=== PATIENT | female | born 1995 | race Two or more races ===

== ENCOUNTER 2024-10-08 17:23 | Outpatient (CLI) | payer MEDICAID, SELFPAY ==
[2024-10-08] VITALS (8 sets, daily range): BP systolic 118–141; BP diastolic 80–92; PULSE 60–65; RESP 16–98; TEMP 36.8; O2SAT 98; BMI 28.5
[2024-10-08 18:14] LABS: Collection Type, Urine Clean Catch; RBC,Urine 0 /hpf (0-3)
[2024-10-08 18:20] LABS: Basophils % (Auto) 0 % (0-2.5); Eosinophils # (Auto) 0.1 Thou/mm3 (0.0-0.5); Eosinophils % (Auto) 1 % (0-10); Hemoglobin 13.3 g/dL (12.0-16.0); Immature Granulocytes % (Auto) 1 % (0-0); Immature Granulocytes Auto 0.05 Thou/mm3 (0.00-0.00); Lymphocytes # (Auto) 1.9 Thou/mm3 (1.0-4.8); Lymphocytes % (Auto) 20 % (10-50); Mean Corpuscular Hemoglobin 31.7 pg (25.0-35.0); Mean Corpuscular Volume 91 fL (80-100); Monocytes # (Auto) 0.7 Thou/mm3 (0.0-0.8); Monocytes % (Auto) 8 % (0-12); Neutrophils # (Auto) 6.6 Thou/mm3 (1.8-7.7); Neutrophils % (Auto) 71 % (37-80); Nucleated Red Blood Cell % 0 /100 WBC (0); Platelet Count 124 Thou/mm3 (140-440); RDW Standard Deviation 41.5 fL (36.4-46.3); White Blood Count 9.3 Thou/mm3 (3.6-11.0)
[2024-10-08 18:38] LABS: Bacteria,Urine 1+; Bilirubin,Urine Negative (Negative); Blood,Urine Negative (Negative); Clarity,Urine Clear (Clear/Hazy); Color,Urine Colorless (Lt Yel-Yel); Glucose, Urine Negative (Negative); Ketones,Urine Negative (Negative); Leukocyte Esterase,Urine Positive (Negative); Nitrite,Urine Negative (Negative); Protein,Urine Negative (Neg - Trace); Specific Gravity,Urine 1.003 (1.001-1.035); Squamous Epithelial Cell,Urine 1 /hpf (0-5); Urobilinogen,Urine Negative mg/dL (0.0-1.0); WBC,Urine 5 /hpf (0-5)
[2024-10-08 18:43] LABS: Alanine Aminotransferase 11 U/L (10-49); Albumin, Serum 3.6 gm/dL (3.5-5.0); Albumin/Globulin Ratio 1.3 (1.2-2.2); Alkaline Phosphatase 99 U/L (46-116); Anion Gap 7 (7-16); Aspartate Amino Transferase 19 U/L (0-34); BUN/Creatinine Ratio 12 Ratio (12-20); Bilirubin,Total 0.3 mg/dL (0.3-1.2); Blood Urea Nitrogen 7 mg/dL (9-23); Calcium 8.8 mg/dL (8.3-10.6); Calcium (Corrected) 9.1 mg/dL (8.5-10.1); Chloride 103 mMol/L (98-107); Creatinine (Component) 0.6 mg/dL (0.6-1.3); Estimated Creatinine Clearance 145.2 mL/min (>60); Globulin 2.8 gm/dL (2.3-3.5); Glucose 86 mg/dL (74-106); Osmolality,Calculated 267 (275-295); Potassium 3.6 mMol/L (3.4-5.1); Sodium 135 mMol/L (136-145); Total Protein 6.4 gm/dL (5.7-8.2); Uric Acid 4.2 mg/dL (3.1-7.8); eGFR > 60 See Note
[2024-10-08 18:44] LABS: Creatinine,Random Urine 15 mg/dL (30-125); Protein Total, Random Urine < 6 mg/dL (1-14)
[2024-10-08 19:32] LABS: Fibrinogen 428 mg/dL (175-375); INR 0.9 (0.9-1.3); Partial Thromboplastin Time 24.2 Seconds (22.0-36.0); Prothrombin Time 9.8 Seconds (9.0-12.2)
[2024-10-08] MEDS: BETAMET ACET/BETAMET NA PH (Celestone) 6 MG/ML VIAL 12 MG IM (20:01)
== END 2024-10-08 20:37 | disposition home or self-care (01) ==
LOC: S4S1 17:27 → S4SX 18:31
PROVIDERS: Referring Provider Specialist; Visit Provider Specialist
DX: O26.893 Other specified pregnancy related conditions, third trimester (principal); Z3A.34 34 weeks gestation of pregnancy; R03.0 Elevated blood-pressure reading, without diagnosis of hypertension
CPT/HCPCS: 36415; 59025; 80053; 81001; 82570; 84156; 84550; 85025; 85384; 85610; 85730; 96372; J0702

== ENCOUNTER 2024-10-09 19:58 | Outpatient (CLI) | payer MEDICAID, SELFPAY ==
[2024-10-09] VITALS (10 sets, daily range): BP systolic 124; BP diastolic 79; PULSE 62–69; RESP 18–100; TEMP 36.8; O2SAT 91–100; BMI 28.0
[2024-10-09] MEDS: BETAMET ACET/BETAMET NA PH (Celestone) 6 MG/ML VIAL 12 MG IM (20:38)
[2024-10-09 21:10] LABS: Creatinine,Urine 53 mg/dL (30-125); Protein Total, Urine 10 mg/dL (1-14)
[2024-10-09 21:23] LABS: Creatinine (Component) 0.6 mg/dL (0.6-1.3); Estimated Creatinine Clearance 143.8 mL/min (>60); eGFR > 60 See Note
[2024-10-09 21:35] LABS: Collection Time,Urine 24 Hours; Creatinine 24 Hour,Urine 1.3 gm/24hr (0.6-1.5); Creatinine Clearance Urine 136 mL/min (90-139); Patient Height,Urine 66 Inches; Patient Weight,Urine 174 Pounds; Protein Total, 24 hr Urine 240 mg/24hr (<149); Protein Total, Urine Volume 2400 mL/24hr (600-1800); Serum Creatinine Result 0.6 mg/dL; Total Volume,Urine 2400 mL (600-1800)
== END 2024-10-09 21:27 | disposition home or self-care (01) ==
LOC: S4SX 20:15 → CNST 20:15
PROVIDERS: Referring Provider Obstetrics & Gynecology; Visit Provider Obstetrics & Gynecology
DX: Z34.03 Encounter for supervision of normal first pregnancy, third trimester (principal); Z36.89 Encounter for other specified antenatal screening; Z3A.34 34 weeks gestation of pregnancy
CPT/HCPCS: 36415; 59025; 82565; 82575; 84156; 96372; J0702

== ENCOUNTER 2024-10-30 04:21 | Inpatient (IN) | payer MEDICAID, SELFPAY ==
[2024-10-30] VITALS (77 sets, daily range): BP systolic 119–160; BP diastolic 78–98; PULSE 57–83; RESP 16–100; TEMP 36.5–36.8; O2SAT 73–100; BMI 27.9
[2024-10-30] MEDS: RINGERS LACTATED 1000 ML 1,000 ML 100 ML IV (05:40)
[2024-10-30] MEDS: Ampicillin Inj 2,000 MG in SODIUM CHLORIDE 0.9% (POP) 100 ML 200 MG IV (05:40)
--- NOTE | 2024-10-30 06:03 | PD.LDANTE ---
Documentation for date of: 10/30/24 OB Labor/Induct. HPI History of Present Illness Chief complaint: Active labor : 1 Para: 0 Term pregnancies: 0 pregnancies: 0 Living children: 0 History of Abortions: Spontaneous and Elective: 0 History of sections: No History of : No Date of last menstrual period: 02/12/24 DAHIANA: 11/18/24 Gestational Age (weeks): 37 Gestational Age (days): 2 Gestational age based on last menstrual period: 37 History of present illness: Patient is a 29-year-old 1 para 0 who is 37 weeks and 2 days who presented to labor and delivery in active labor. She receives care at [facility] and we do not have access to the records at this time. Patient reports estimated due date of 11/18/2024. She also reports that she has diet-controlled gestational diabetes Patient reports her contractions started around midnight, on arrival her cervical exam was 7/ 100 with 0 station From the limited records that could be accessed through the [employer] site we have 3-hour glucose tolerance on 09/05/2024 where she had abnormal on her 2 and 3-hour tests patient had a CBC done on 08/28/2024. She had a hemoglobin of 13.2 with platelets of 154 AFP test on 06/05/2024 was negative. A maternity 21 NIPT testing done on 04/29/2024 which was negative for all trisomies cystic fibrosis screening was negative SMA testing was negative her initial labs done on 04/22/2024 show hepatitis B negative hepatitis C negative RPR nonreactive rubella immune blood group is A+ with negative antibody screen HIV is nonreactive gonorrhea and chlamydia is negative urinalysis showed trace of occult blood and lactobacillus on culture with 25,000-50,000 CFU's per mL toxicology screen was negative. Review of Systems Review of Systems Systems Reviewed: All systems reviewed, normal except as documented Past Medical History Surgical History SURGICAL: Negative Section Meds Home Medications and Allergies Home Medications ?Medication ?Instructions ?Recorded ?Confirmed ?Type vitamin 1 tab PO QDAY 10/08/24 10/30/24 History no.76-iron,carbonyl 29 mg iron-folic acid 1 mg tablet (Prenatabs Rx) Allergies Allergy/AdvReac Type Severity Reaction Status Date / Time aspirin Allergy Mild Difficulty Verified 10/30/24 05:04 Breathing OB Exam Physical Exam Vital signs: Pulse BP Pulse Ox 76 132/81 H 99 10/30/24 05:48 10/30/24 05:48 10/30/24 06:00 Constitutional Constitutional: no acute distress Routine HEENT Exam Head: Present normocephalic and atraumatic Eye: Present EOMI and PERRL ENT: Present mucous membranes moist Routine Neck Exam Neck: Present supple and trachea midline Routine Cardiovascular Exam Cardiovascular: Present RRR Routine Abdominal Exam Abdominal: Present soft and normoactive bowel sounds Detailed Labor and Delivery Exam Dilation (cm): 7 Effacement (%): 100 Cervix position: mid station: -1 Consistency: soft Presentation: Vertex Membranes: intact Baseline heart rate: 135 monitor accelerations: 15x15 monitor decelerations: None vermin exterminator variability: Average (6-10) Routine Extremities Exam Extremities: Present full ROM Routine Skin Exam Skin: Present intact, dry and warm Routine Neurological Exam Neurological: Present alert, oriented X3 and CN II-XII intact Routine Psychiatric Exam Psychiatric: Present normal affect and normal thought process OB Results Labs 10/30/24 05:40 10/30/24 05:40 OB Assessment & Plan Assessment and Plan (1) Active labor at term: Status: Acute Assessment and plan: 29 year-old at 37-2/7 weeks gestation presents in spontaneous labor. Reports regular uterine contractions starting 4 hours ago, increasing in intensity/frequency. No rupture of membranes reported. No vaginal bleeding. movement reported as reassuring. No complications reported this . Plan: Admit to Labor and Delivery for spontaneous labor Monitor heart tones and uterine activity (continuous EFM) Obtain admission labs: CBC, type & screen, RPR, IV access 22 gauge, start LR at 125cc/hr Pain management: patient desires (epidural/IV pain meds/unmedicated) GBS status: unknown If positive or unknown, begin intrapartum antibiotics (Penicillin G 5 million units IV load, then 2.5 million units IV q4h) Cervical exams as needed for labor progress Notify MD/CNM of labor progression or complications Delivery plan: (vaginal delivery anticipated; patient desires delayed cord clamping/[id number]/etc.)
[2024-10-30 06:04] LABS: Basophils % (Auto) 0 % (0-2.5); Eosinophils % (Auto) 0 % (0-10); Hemoglobin 14.8 g/dL (12.0-16.0); Immature Granulocytes % (Auto) 1 % (0-0); Immature Granulocytes Auto 0.09 Thou/mm3 (0.00-0.00); Lymphocytes # (Auto) 1.4 Thou/mm3 (1.0-4.8); Lymphocytes % (Auto) 11 % (10-50); Mean Corpuscular HGB Conc 36.1 g/dl (31.0-37.0); Mean Corpuscular Volume 86 fL (80-100); Monocytes # (Auto) 0.3 Thou/mm3 (0.0-0.8); Monocytes % (Auto) 3 % (0-12); Neutrophils # (Auto) 11.2 Thou/mm3 (1.8-7.7); Neutrophils % (Auto) 86 % (37-80); Nucleated Red Blood Cell % 0 /100 WBC (0); Platelet Count 117 Thou/mm3 (140-440); RDW Standard Deviation 38.5 fL (36.4-46.3); Red Blood Count 4.78 Miln/mm3 (4.00-5.20)
[2024-10-30 06:45] LABS: Syphilis Nonreactive (Nonreactive)
[2024-10-30 06:54] LABS: Alanine Aminotransferase 16 U/L (10-49); Albumin, Serum 4.1 gm/dL (3.5-5.0); Albumin/Globulin Ratio 1.5 (1.2-2.2); Alkaline Phosphatase 117 U/L (46-116); Anion Gap 17 (7-16); Aspartate Amino Transferase 28 U/L (0-34); BUN/Creatinine Ratio 17 Ratio (12-20); Bilirubin,Total 0.4 mg/dL (0.3-1.2); Blood Urea Nitrogen 12 mg/dL (9-23); Calcium 9.7 mg/dL (8.3-10.6); Calcium (Corrected) 9.7 mg/dL (8.5-10.1); Carbon Dioxide 18.7 mMol/L (20.0-31.0); Chloride 99 mMol/L (98-107); Creatinine (Component) 0.7 mg/dL (0.6-1.3); Estimated Creatinine Clearance 123.1 mL/min (>60); Globulin 2.7 gm/dL (2.3-3.5); Glucose 154 mg/dL (74-106); Osmolality,Calculated 272 (275-295); Potassium 3.9 mMol/L (3.4-5.1); Sodium 135 mMol/L (136-145); Total Protein 6.8 gm/dL (5.7-8.2); eGFR > 60 See Note
[2024-10-30 07:02] LABS: Amphetamine/Metham Scrn,Ur OB Negative (Negative); Benzoylecgonine Screen, Ur OB Negative (Negative); Opiate Screen,Urine OB Negative (Negative); THC Screen,Urine OB Negative (Negative)
[2024-10-30] MEDS: MINERAL OIL 30 ML UDC TOP (07:26)
[2024-10-30 07:28] LABS: Hepatitis B Surface Antigen Non Reactive (Non React); Rubella, IgG Antibody Reactive (Immune)
[2024-10-30] MEDS: OXYTOCIN in NS 20 units 20 UNIT/1,000 ML BAG 125 UNIT IV (07:29)
--- NOTE | 2024-10-30 07:41 | PD.LDDELS ---
Data (Wood) Data Hx Section: No : 1 Term: 0 : 0 Livin Abortions: Spontaneous & Theraputic: 0 Delivery Data (Wood) Delivery Data Delivered by: Omar Roberson Delivery Method Presentation: Vertex
[2024-10-30 09:28] LABS: Collection Type, Urine Voided; Squamous Epithelial Cell,Urine 0 /hpf (0-5)
[2024-10-30] MEDS: TRANEXAMIC ACID 1,000 MG IVPB 1,000 MG/100 ML BAG 200 MG IV (09:44)
[2024-10-30 09:47] LABS: Alanine Aminotransferase 15 U/L (10-49); Albumin/Globulin Ratio 1.4 (1.2-2.2); Alkaline Phosphatase 123 U/L (46-116); Anion Gap 17 (7-16); Aspartate Amino Transferase 21 U/L (0-34); BUN/Creatinine Ratio 14 Ratio (12-20); Bilirubin,Total 0.4 mg/dL (0.3-1.2); Blood Urea Nitrogen 11 mg/dL (9-23); Calcium 9.2 mg/dL (8.3-10.6); Calcium (Corrected) 9.2 mg/dL (8.5-10.1); Carbon Dioxide 20.2 mMol/L (20.0-31.0); Chloride 101 mMol/L (98-107); Creatinine (Component) 0.8 mg/dL (0.6-1.3); Estimated Creatinine Clearance 107.7 mL/min (>60); Globulin 2.8 gm/dL (2.3-3.5); Glucose 133 mg/dL (74-106); Osmolality,Calculated 277 (275-295); Potassium 3.4 mMol/L (3.4-5.1); Sodium 138 mMol/L (136-145); Total Protein 6.8 gm/dL (5.7-8.2); Uric Acid 5.1 mg/dL (3.1-7.8); eGFR > 60 See Note
[2024-10-30 09:48] LABS: Creatinine,Random Urine 63 mg/dL (30-125); Protein Total, Random Urine 76 mg/dL (1-14)
[2024-10-30 09:51] LABS: HIV (1&2) Antibody Rapid Non-Reactive
[2024-10-30 10:56] LABS: Fibrinogen 454 mg/dL (175-375); INR 0.9 (0.9-1.3); Partial Thromboplastin Time 22.8 Seconds (22.0-36.0)
[2024-10-30 12:04] LABS: Bilirubin,Urine Negative (Negative); Blood,Urine 3+ (Negative); Glucose, Urine 3+ (Negative); Ketones,Urine 2+ (Negative); Leukocyte Esterase,Urine Positive (Negative); Nitrite,Urine Negative (Negative); Protein,Urine 1+ (Neg - Trace); RBC,Urine 6877 /hpf (0-3); Specific Gravity,Urine 1.021 (1.001-1.035); Urobilinogen,Urine Negative mg/dL (0.0-1.0); WBC,Urine 3 /hpf (0-5)
[2024-10-30 12:05] LABS: Clarity,Urine Bloody (Clear/Hazy); Color,Urine Red (Lt Yel-Yel)
[2024-10-30 14:25] LABS: Basophils % (Auto) 0 % (0-2.5); Eosinophils % (Auto) 0 % (0-10); Hematocrit 34.6 % (36.0-46.0); Hemoglobin 12.2 g/dL (12.0-16.0); Immature Granulocytes % (Auto) 1 % (0-0); Immature Granulocytes Auto 0.07 Thou/mm3 (0.00-0.00); Lymphocytes # (Auto) 1.4 Thou/mm3 (1.0-4.8); Lymphocytes % (Auto) 10 % (10-50); Mean Corpuscular HGB Conc 35.3 g/dl (31.0-37.0); Mean Corpuscular Hemoglobin 31.1 pg (25.0-35.0); Mean Corpuscular Volume 88 fL (80-100); Monocytes # (Auto) 0.5 Thou/mm3 (0.0-0.8); Monocytes % (Auto) 4 % (0-12); Neutrophils # (Auto) 11.8 Thou/mm3 (1.8-7.7); Neutrophils % (Auto) 86 % (37-80); Nucleated Red Blood Cell % 0 /100 WBC (0); Platelet Count 106 Thou/mm3 (140-440); RDW Standard Deviation 40.2 fL (36.4-46.3); Red Blood Count 3.92 Miln/mm3 (4.00-5.20); White Blood Count 13.8 Thou/mm3 (3.6-11.0)
[2024-10-31 00:15] VITALS: BP 127/79; PULSE 59; RESP 20; TEMP 36.6; O2SAT 99
[2024-10-31 04:06] VITALS: BP 139/89; PULSE 62; RESP 18; TEMP 36.4; O2SAT 98
[2024-10-31 06:20] LABS: Basophils % (Auto) 0 % (0-2.5); Eosinophils # (Auto) 0.1 Thou/mm3 (0.0-0.5); Eosinophils % (Auto) 1 % (0-10); Hematocrit 33.9 % (36.0-46.0); Hemoglobin 12.3 g/dL (12.0-16.0); Immature Granulocytes % (Auto) 1 % (0-0); Immature Granulocytes Auto 0.06 Thou/mm3 (0.00-0.00); Lymphocytes % (Auto) 20 % (10-50); Mean Corpuscular HGB Conc 36.3 g/dl (31.0-37.0); Mean Corpuscular Hemoglobin 31.8 pg (25.0-35.0); Mean Corpuscular Volume 88 fL (80-100); Monocytes # (Auto) 0.5 Thou/mm3 (0.0-0.8); Monocytes % (Auto) 5 % (0-12); Neutrophils # (Auto) 7.4 Thou/mm3 (1.8-7.7); Neutrophils % (Auto) 73 % (37-80); Nucleated Red Blood Cell % 0 /100 WBC (0); Platelet Count 95 Thou/mm3 (140-440); RDW Standard Deviation 40.4 fL (36.4-46.3); Red Blood Count 3.87 Miln/mm3 (4.00-5.20)
[2024-10-31 08:05] VITALS: BP 136/87; PULSE 63; RESP 16; TEMP 36.6; O2SAT 96
--- NOTE | 2024-10-31 08:20 | PD.LDPPPRG ---
Subjective Subjective Interval history: No complaints of pain. No dizziness. Bonding. Able to ambulate to the NICU with no complaints and no dizziness. Exam Vital Signs Temp Pulse Resp BP Pulse Ox O2 Del Method 97.6 F 62 18 139/89 H 98 Room Air 10/31/24 04:06 10/31/24 04:06 10/31/24 04:06 10/31/24 04:06 10/31/24 04:06 10/31/24 04:06 Narrative Exam Vital signs are stable afebrile. Pressure soft. Fundus firm below the umbilicus. Perineum intact no swelling. She had 4 stitches in the labia. Negative Homans' sign. 2+ DTRs. Objective Labs 10/31/24 05:36 10/30/24 05:40 Labs: Laboratory Results - last 24 hr 10/30/24 10/30/24 10/30/24 05:40 09:20 10:05 WBC RBC Hgb Hct MCV MCH MCHC RDW Std Deviation Plt Count Neut % (Auto) Lymph % (Auto) [place] % (Auto) Eos % (Auto) Baso % (Auto) Neut # (Auto) Lymph # (Auto) [place] # (Auto) Eos # (Auto) Baso # (Auto) Immature Gran # (Auto) Absolute Nucleated RBC Immature Gran % Nucleated RBC % PT 10.0 INR 0.9 APTT 22.8 Fibrinogen 454 H Sodium 138 Potassium 3.4 D Chloride 101 Carbon Dioxide 20.2 Anion Gap 17 H BUN 11 Creatinine 0.8 Estim Creat Clear Calc 107.7 eGFR > 60 BUN/Creatinine Ratio 14 Glucose 133 H Calculated Osmolality 277 Uric Acid 5.1 Calcium 9.2 Corrected Calcium 9.2 Total Bilirubin 0.4 AST 21 ALT 15 Alkaline Phosphatase 123 H Total Protein 6.8 Albumin 4.0 Globulin 2.8 Albumin/Globulin Ratio 1.4 Ur Collection Type Voided Urine Color Red A Urine Clarity Bloody A Urine pH 7.0 Ur Specific [place] 1.021 Urine Protein 1+ A Urine Glucose (UA) 3+ A Urine Ketones 2+ A Urine Blood 3+ A Urine Nitrite Negative Urine Bilirubin Negative Urine Urobilinogen (Auto) Negative Ur Leukocyte Esterase Positive Urine RBC 6877 H Urine WBC 3 Ur Squamous Epith Cells 0 Urine Bacteria None Ur Random Creatinine 63 U Random Total Protein 76 H HIV 1&2 Antibody Rapid Non-Reactive 10/30/24 10/31/24 14:12 05:36 WBC 13.8 H 10.0 RBC 3.92 L 3.87 L Hgb 12.2 D 12.3 Hct 34.6 L 33.9 L MCV 88 88 MCH 31.1 31.8 MCHC 35.3 36.3 RDW Std Deviation 40.2 40.4 Plt Count 106 L 95 L Neut % (Auto) 86 H 73 Lymph % (Auto) 10 20 [place] % (Auto) 4 5 Eos % (Auto) 0 1 Baso % (Auto) 0 0 Neut # (Auto) 11.8 H 7.4 Lymph # (Auto) 1.4 2.0 [place] # (Auto) 0.5 0.5 Eos # (Auto) 0.0 0.1 Baso # (Auto) 0.0 0.0 Immature Gran # (Auto) 0.07 H 0.06 H Absolute Nucleated RBC 0.00 0.00 Immature Gran % 1 H 1 H Nucleated RBC % 0 0 PT INR APTT Fibrinogen Sodium Potassium Chloride Carbon Dioxide Anion Gap BUN Creatinine Estim Creat Clear Calc eGFR BUN/Creatinine Ratio Glucose Calculated Osmolality Uric Acid Calcium Corrected Calcium Total Bilirubin AST ALT Alkaline Phosphatase Total Protein Albumin Globulin Albumin/Globulin Ratio Ur Collection Type Urine Color Urine Clarity Urine pH Ur Specific [place] Urine Protein Urine Glucose (UA) Urine Ketones Urine Blood Urine Nitrite Urine Bilirubin Urine Urobilinogen (Auto) Ur Leukocyte Esterase Urine RBC Urine WBC Ur Squamous Epith Cells Urine Bacteria Ur Random Creatinine U Random Total Protein HIV 1&2 Antibody Rapid Assessment & Plan Problem List (1) Active labor at term: Status: Acute Assessment Comment Assessment comment: 24 hr pp Plan Comment Plan Comment: Discharge today. Okay to board while baby is in the NICU. Continue vitamins and iron. Tylenol or ibuprofen for pain. Discussed danger signs symptoms and ER precautions with parameters. I discussed signs symptoms of infection. Continue GDM diet. Increase fluids. Continue to visit NICU and baby. Breast-feeding with support. Increase fluids. Schedule appointment with her provider for 2-week . Time Spent With Patient Time: Total time spent is greater than 50% in coordination of care (as documented) at patient's floor/unit and/or counseling patient:
--- NOTE | 2024-10-31 08:23 | PD.LDDS ---
DS: Providers Provider Date of admission: 10/30/24 04:59 Primary care physician: Physician No Primary/Family Admitting Provider: Omar Roberson MD Attending Provider on Admission: Jordyn Taylor CNM Consults: 10/30/24 13:38 Referral Routine Comment: Attending Provider on DC: Jordyn Taylor CNM Discharging Provider: Jordyn Taylor CNM DS: Diagnosis Problem List Completed Was Problem List Reviewed/Reconciled?: Yes Summary/Hosp Course Brief History: Patient is a 29-year-old 1 para 0 who is 37 weeks and 2 days who presented to labor and delivery in active labor. She receives care at [facility] and we do not have access to the records at this time. Patient reports estimated due date of 11/18/2024. She also reports that she has diet-controlled gestational diabetes Patient reports her contractions started around midnight, on arrival her cervical exam was 7/ 100 with 0 station From the limited records that could be accessed through the [employer] site we have 3-hour glucose tolerance on 09/05/2024 where she had abnormal on her 2 and 3-hour tests patient had a CBC done on 08/28/2024. She had a hemoglobin of 13.2 with platelets of 154 AFP test on 06/05/2024 was negative. A maternity 21 NIPT testing done on 04/29/2024 which was negative for all trisomies cystic fibrosis screening was negative SMA testing was negative her initial labs done on 04/22/2024 show hepatitis B negative hepatitis C negative RPR nonreactive rubella immune blood group is A+ with negative antibody screen HIV is nonreactive gonorrhea and chlamydia is negative urinalysis showed trace of occult blood and lactobacillus on culture with 25,000-50,000 CFU's per mL toxicology screen was negative. Peripartum Data Delivery Method: Normal Vaginal Delivery Episiotomy Description: None Laceration Description: yes (labia) complications: none Time Spent with Patient Time attestation: Total time spent providing and/or coordinating discharge services: Exam Vital Signs Temp Pulse Resp BP Pulse Ox O2 Del Method 97.6 F 62 18 139/89 H 98 Room Air 10/31/24 04:06 10/31/24 04:06 10/31/24 04:06 10/31/24 04:06 10/31/24 04:06 10/31/24 04:06 Discharge Plan Plan Patient Disposition: HOME (Self Care) Patient condition on transfer: Stable Prescriptions/Referrals Prescriptions/Med Rec: No Action Prenatabs Rx 29 mg iron- 1 mg tablet 1 tab PO QDAY Referrals: No Primary/Family,Physician [Primary Care Provider] - Patient/Caregiver Discharge Instructions Discharge Activity: resume usual activities Print Language: Faroese Activity Restrictions/Additional Instructions: Discharge today. Patient will board while baby is in the NICU. Continue vitamins and iron. Tylenol ibuprofen for pain. Discussed ER precautions and parameters. I discussed signs symptoms of infection and danger signs. Increase fluids and rest. Discussed comfort measures for laceration. Continue GDM diet. And schedule an appointment with provider in 2 weeks for visit Stand Alone Forms: [employer] Info., Patient Portal Info Letter Discharge Order Discharge Orders: Discharge (Routine); Ordered 10/31/24 Ordered By: Jordyn Taylor Planned Discharge Date 10/31/24
[2024-10-31] MEDS: DiphenhydrAMINE 25 MG CAPSULE PO (13:06)
== END 2024-10-31 13:15 | disposition home or self-care (01) | DRG 560 ==
LOC: S4SX 08:00 → S4NX 11:16
PROVIDERS: Admitting Provider Obstetrics & Gynecology; Visit Provider Advanced Practice Midwife
DX: O24.420 Gestational diabetes mellitus in childbirth, diet controlled (principal); Z37.0 Single live birth; Z3A.37 37 weeks gestation of pregnancy; Z88.6 Allergy status to analgesic agent; O70.0 First degree perineal laceration during delivery
CPT/HCPCS: 36415; 80053; 80307; 81001; 82570; 84156; 84550; 85025; 85384; 85610; 85730; 86703; 86762; 86780; 86850; 86900; 86901; 87340; J0290; J2590; J3490; J7120; A9270